=== PATIENT | male | born 1950 | race Two or more races ===

== ENCOUNTER 2023-04-12 21:29 | Emergency (ER) | payer MEDICARE, MEDICAID ==
[~2023-04-12] VITALS: Ht 160 cm; Wt 77.0 kg
[~2023-04-12 21:29] MED LIST: ATOV1TAB PO; CEFP200T15 PO; DEXTSYP31 PO; FOLI-119 PO; MAGN84TA4 PO; ONDA-155 PO; PANT1INJ3 PO; POM PO; PRE1T PO; URSO300C2 PO; [UNRECOGNIZED DRUG - CODE] PO
[2023-04-13 07:52] VITALS: BP 116/63; PULSE 80; RESP 18; TEMP 97.5; O2SAT 95
== END 2023-04-13 00:20 | disposition home or self-care (01) ==
LOC: ER 21:29
DX: S46.812A Strain of other muscles, fascia and tendons at shoulder and upper arm level, left arm, initial encounter (principal); S00.03XA Contusion of scalp, initial encounter; Z85.9 Personal history of malignant neoplasm, unspecified; W01.0XXA Fall on same level from slipping, tripping and stumbling without subsequent striking against object, initial encounter; Y93.89 Activity, other specified; Y92.89 Other specified places as the place of occurrence of the external cause; Y99.8 Other external cause status
CPT/HCPCS: 70450; 73030

== ENCOUNTER 2023-04-16 15:13 | Emergency (ER) | payer MEDICARE, MEDICAID ==
[~2023-04-16] VITALS: Ht 160 cm; Wt 75.1 kg
[2023-04-16] MEDS ORDERED: ACETAMINOPHEN 500 MG TAB PO ONE (16:00)
[2023-04-16 16:20] VITALS: PULSE 104; RESP 20; O2SAT 92
[2023-04-16 16:22] VITALS: TEMP 98.4
[2023-04-16 16:41] LABS: Basophils # (auto) 0 10 ^3/uL (0-0.2); Eosinophils # (auto) 0 10 ^3/uL (0-0.8); Lymphocytes # (auto) 0.4 10 ^3/uL (0.4-5.4); Nucleated Red Blood Cells % 0.1 %
[2023-04-16 16:47] LABS: Basophils % (auto) 0.3 % (0.0-2.0); Eosinophils % (auto) 0.3 % (0.0-7.0); Hematocrit 40.1 % (41.0-53.0); Lymphocytes % (auto) 5.2 % (10.0-50.0); Mean Corpuscular Hemoglobin 26.1 pg (28.0-32.0); Mean Corpuscular Hgb Conc. 32.3 g/dL (32.0-36.0); Monocytes # (auto) 0.3 10 ^3/uL (0-1.3); Monocytes % (auto) 4.7 % (0.0-12.0); Neutrophils # (auto) 6.3 10 ^3/uL (1.6-8.6); Neutrophils % (auto) 89.5 % (37.0-80.0); Red Blood Cells 4.96 10^6/uL (4.5-5.90)
[2023-04-16 17:06] LABS: Alkaline Phosphatase 88 U/L (46-116); Anion Gap 7 (5-15); Aspartate Aminotransferase 12 U/L (13-40); BUN/Creatinine Ratio 11.3 (10.0-20.0); Blood Urea Nitrogen 12 mg/dL (9-23); Calcium 9.1 mg/dL (8.7-10.4); Carbon Dioxide 25 mmol/L (20-30); Chloride 108 mmol/L (98-107); Glucose 122 mg/dL (74-106); Sodium 140 mmol/L (136-145)
[2023-04-16 17:07] LABS: Albumin 4.3 g/dL (3.2-4.8); Bilirubin, Total 0.9 mg/dL (0.2-1.0); Total Protein 6.6 g/dL (5.7-8.2)
[2023-04-16 17:37] LABS: Alanine Aminotransferase < 9 U/L (7-40)
[2023-04-16 17:40] LABS: COVID19 ANTIGEN SOFIA FIA NEGATIVE (NEGATIVE); Rapid Influenza A Negative (Negative); Rapid Influenza B Negative (Negative)
[2023-04-16 17:44] LABS: Urine Bacteria NONE SEEN /hpf (None Seen); Urine Blood Negative /uL (Negative); Urine Clarity HAZY (Clear); Urine Color Yellow (Yellow); Urine Mucus FEW (None Seen); Urine Protein, UAD 1+ (Negative); Urine Specific Gravity 1.026 (1.001-1.035); Urine Urobilinogen Normal (Negative); Urine WBC 2 /hpf (0 - 3)
[2023-04-16] MEDS ORDERED: AZITHROMYCIN 250 MG TAB PO ONE (18:30)
[2023-04-16] MEDS ORDERED: BENZ100C97 PO (18:38)
[2023-04-16] MEDS ORDERED: LORA10CA PO (18:38)
[2023-04-16] MEDS ORDERED: AZIT-81 PO (18:38)
[2023-04-16 19:00] VITALS: BP 103/61; PULSE 87; RESP 14; O2SAT 96
== END 2023-04-16 19:18 | disposition home or self-care (01) ==
LOC: ER 15:13
DX: J18.9 Pneumonia, unspecified organism (principal); Z20.822 Contact with and (suspected) exposure to COVID-19
CPT/HCPCS: 36415; 71045; 80053; 81001; 83880; 84484; 85025; 87426; 87804

== ENCOUNTER 2023-08-18 21:04 | Emergency (ER) | payer MEDICARE, MEDICAID ==
[~2023-08-18] VITALS: Ht 160 cm; Wt 77.4 kg
[~2023-08-18 21:04] MED LIST changes: +AZIT-185 PO; +BENZ100C97 PO; +LORA10CA PO
[2023-08-18 21:20] VITALS: BP 135/77; PULSE 112
[2023-08-18 22:23] LABS: COVID19 ANTIGEN SOFIA FIA NEGATIVE (NEGATIVE)
[2023-08-18 22:24] LABS: Rapid Influenza A Negative (Negative); Rapid Influenza B Negative (Negative)
[2023-08-19] MEDS ORDERED: cefTRIAXone 1GM/50ML D5W 50 ML IV ONE (02:00)
[2023-08-19] MEDS ORDERED: AZITHROMYCIN 500MG/ 250ML 250 ML IV ONE (02:00)
[2023-08-19 02:09] VITALS: RESP 18; O2SAT 96
[2023-08-19] MEDS: IPRATROPIUM BROM 0.5 MG/2.5ML INH SOL NEB ONE (02:09)
[2023-08-19] MEDS: ALBUTEROL SULF 2.5 MG/0.5ML(0.5%) NEB SOLN NEB ONE (02:09)
[2023-08-19] MEDS ORDERED: HYDROcodone-ACET 5/325MG TAB PO PRN (04:45)
[2023-08-19] MEDS ORDERED: IPRATROPIUM BROM 0.5 MG/2.5ML INH SOL NEB PRN (04:45)
[2023-08-19] MEDS ORDERED: ACETAMINOPHEN 325 MG TAB PO PRN (04:45)
[2023-08-19] MEDS ORDERED: ONDANSETRON HCL 4 MG/2 ML VIAL IV PRN (04:45)
[2023-08-19] MEDS ORDERED: MORPHINE SULFATE INJ 2 MG/ml SYRG IV PRN (04:45)
[2023-08-19] MEDS ORDERED: DOCUSATE SOD 100 MG CAP PO PRN (04:45)
[2023-08-19] MEDS ORDERED: NITROGLYCERIN 0.4 MG SL TAB SL PRN (04:45)
[2023-08-19] MEDS ORDERED: ALBUTEROL SULF 2.5 MG/0.5ML(0.5%) NEB SOLN NEB PRN (04:45)
[2023-08-19] MEDS ORDERED: SODIUM CHLOR 0.9% PF (SALINE LOCK) 10ML VIAL/SYR IV SCH (06:00)
[2023-08-19] MEDS ORDERED: MULTIPLE VITAMIN TAB PO SCH (10:00)
[2023-08-20] MEDS ORDERED: AZITHROMYCIN 500MG/ 250ML 250 ML IV SCH (02:00)
== END 2023-08-19 06:56 | disposition left against medical advice (07) ==
LOC: ER 21:04
DX: J18.9 Pneumonia, unspecified organism (principal); R09.02 Hypoxemia; Z20.822 Contact with and (suspected) exposure to COVID-19
CPT/HCPCS: 36415; 71045; 87426; 87804; 94640; 99284; J7644

== ENCOUNTER 2024-02-23 11:53 | Inpatient (IN) | payer MEDICARE, MEDICAID ==
[~2024-02-23] VITALS: Ht 160 cm; Wt 65.7 kg
--- NOTE | 2024-02-23 13:52 | ED.PDOC ---
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 Per spouse, patient endorses on having difficulty breathing and cough with yellow- phlegm production for the past 2-3x days, with additional onset of fever and 1x episode of diarrhea, yesterday, evening. Patient comments on recent PNA Dx with urgent care visit in [facility] in addition to eloping from [facility] ED in [place], [place], after being sent from urgent care, due to also being found with a low SpO2 then. Patient reports NyQuil use, last night, to no relief or improvement to symptoms in addition to reporting on testing negative for Covid19 during aforementioned ED visit. Patient endorses no recent injuries, sick contact, travel, spoiled food, or substance use/exposure. Denies having any chest pain, hemoptysis, chills, nausea, vomiting, or other associated symptoms or modifiers at this time. Chief Complaint: Shortness of Breath Time Seen by MD: 13:00 Primary Care Provider: [facility], [place] Reviewed Notes: Nurses Notes, Medications, Allergies Allergies: Coded Allergies: NO KNOWN ALLERGIES (Unverified , 04/08/13) Home Meds Active Scripts Benzonatate (Benzonatate) 100 Mg Cap, 1 CAP PO TID, #20 CAP Prov:AMADO FRASER PAC 04/16/23 Loratadine (Claritin) 10 Mg Cap, 10 MG PO DAILY for 10 Days, #10 CAP Prov:AMADO FRASER PAC 04/16/23 Azithromycin (ZITHROMAX TABLET) 250 Mg Tb, 250 MG PO DAILY for 4 Days, #4 TAB Patient to take first dose on 04/17/2023 Prov:AMADO FRASER PAC 04/16/23 Cefpodoxime Proxetil (Cefpodoxime Proxetil) 200 Mg Tab, 1 TAB PO BID, #12 TAB Prov:MARIZA WOODS MD 04/05/23 Reported Medications Ondansetron HCl (Ondansetron) 4 Mg Tab, 8 MG PO Q8HR PRN for NAUSEA / VOMITING, TAB 04/04/23 Magnesium Lactate (Mag-Tab Sr) 84 Mg Tab, 133 MG PO BID, TAB 04/04/23 Ursodiol (Ursodiol) 300 Mg Cap, 300 MG PO DAILY for 30 Days, MG 04/04/23 Atovaquone-Proguanil Hcl (ATOVAQUONE/PROGUANIL HCL) 1 Tab Tab, 10 ML PO BID, TAB 04/04/23 Dextromethorphan-Guaifenesin (Guaifenesin Dm) Dm Syp, 10 ML PO Q6HP PRN for FOR COUGH, SYP 04/04/23 Folic Acid (Folic Acid) 1 Mg Tab, 1 TAB PO DAILY for 30 Days, MG 04/04/23 Patients Own Medication (PATIENTS OWN MEDICATION) ., 1 TAB PO BID PTS OWN MED-OBTAIN FROM PT AND SEND TO RX DRUG: FREQ: RX# EXP: DATE DISP: TECH: RPH: 04/04/23 Posaconazole (Posaconazole) 40 Mg/Ml Hannah, 300 MG PO DAILY, ML 04/04/23 Pantoprazole Sodium (PANTOPRAZOLE SODIUM) 40 Mg Inj, 40 MG PO DAILY, INJ 04/04/23 Prednisone (PREDNISONE) 1 Mg Tb, 10 MG PO EOD, TAB 04/04/23 Information Source: Patient, Spouse Mode of Arrival: Ambulatory Severity: Moderate Timing: Days Duration: Since onset Prehospital treatment: None Past Medical History PAST MEDICAL HISTORY: Cancer (leukemia, in remission ) Past Medical History (Other): obesity Surgical History: Appendectomy, Cholecystectomy, Hernia Repair Surgical History (Other): liver Sx, cataract Sx Family History Family History: No family hx of DM, No family hx of Heart elaine, No family hx of HTN, No family hx ofKidney elaine, No family hx of Liver elaine, No family hx of Lung elaine, No family hx of Stroke, Family hx of Cancer (maternal side ) Social History Smoker: Non-Smoker Alcohol: Denies ETOH Use Drugs: Denies Drug Use Lives In: Home Constitutional: reports: fever; denies: chills, diaphoresis, fatigue, malaise, sweats, weakness, others EENTM: denies: blurred vision, double vision, ear bleeding, ear discharge, ear drainage, ear pain, ear ringing, eye pain, eye redness, hearing loss, mouth pain, mouth swelling, nasal discharge, nose bleeding, nose congestion, nose pain, photophobia, tearing, throat pain, throat swelling, voice changes, others Respiratory: reports: cough, shortness of breath; denies: hemoptysis, orthopnea, SOB at rest, SOB with excertion, stridor, wheezing, others Cardiovascular: denies: chest pain, dizzy spells, diaphoresis, Dyspnea on exertion, edema, irregular heart beat, left arm pain, lightheadedness, palpitations, PND, syncope, others Gastrointestinal: reports: diarrhea; denies: abdomen distended, abdominal pain, blood streaked bowels, constipated, dysphagia, difficulty swallowing, hematemesis, melena, nausea, poor appetite, poor fluid intake, rectal bleeding, rectal pain, vomiting, others Genitourinary: denies: burning, dysuria, flank pain, frequency, hematuria, incontinence, penile discharge, penile sore, pain, testicle pain, testicle swelling, urgency, others Neurological: denies: dizziness, fainting, headache, left sided numbness, left sided weakness, numbness, paresthesia, pre-existing deficit, right sided numbness, right sided weakness, seizure, speech problems, tingling, tremors, weakness, others Musculoskeletal: denies: back pain, gout, joint pain, joint swelling, muscle pain, muscle stiffness, neck pain, others Integumetry: denies: bruises, change in color, change in hair/nails, dryness, laceration, lesions, lumps, rash, wounds, others Allergic/Immunocompromised: denies: Difficulty Healing, Frequent Infections, Hives, Itching, others Hematologic/Lymphatic: denies: anemia, blood clots, easy bleeding, easy bruising, swollen glands, others Endocrine: denies: excessive hunger, excessive sweating, excessive thirst, excessive urination, flushing, intolerance to cold, intolerance to heat, unexplained weight gain, unexplained weight loss, others Psychiatric: denies: anxiety, bipolar disorder, depression, hopeless, panic disorder, schizophrenia, sleepless, suicidal, others All Other Systems: Reviewed and Negative Physical Exam General Appearance: Moderate Distress, Obese HEENT: Normal ENT Inspection, Pharynx Normal, TMs Normal Neck: Full Range of Motion, Non-Tender, Normal, Normal Inspection Respiratory: Chest Non-Tender, Lungs Clear, No Accessory Muscle Use, No Respiratory Distress, Normal Breath Sounds Cardiovascular: No Edema, No JVD, No Murmur, No Gallop, Tachycardia Breast Exam: Deferred Gastrointestinal: No Organomegaly, Non Tender, No Pulsatile Mass, Normal Bowel Sounds, Soft Genitalia: Deferred Pelvic: Deferred Rectal: Deferred Extremities: No calf tenderness, Normal capillary refill, Normal inspection, Normal range of motion, Non-tender, No pedal edema Musculoskeletal : Apperance: Normal 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 Was a procedure done?: No Differential Dx Considerations may include: PNA, bronchitis, Covid19, URI, viral syndrome, PE, MO X-Ray, Labs, Meds, VS Vital Signs Date Time Temp Pulse Resp B/P (MAP) Pulse Ox O2 Delivery O2 Flow Rate FiO2 02/23/24 12:35 97.8 94 18 123/70 (87) 95 Lab Test 02/23/24 13:40 Range/Units White Blood Count 8.4 4.4-10.8 10^3/uL Red Blood Count 5.57 4.5-5.90 10^6/uL Hemoglobin 14.5 13.5-17.5 g/dL Hematocrit 44.0 41.0-53.0 % Mean Corpuscular Volume 78.9 L 80.0-100.0 fL Mean Corpuscular Hemoglobin 26.0 L 28.0-32.0 pg Mean Corpuscular Hemoglobin Concent 32.9 32.0-36.0 g/dL Red Cell Distribution Width 15.2 H 11.8-14.3 % Platelet Count 153 140-450 10^3/uL Mean Platelet Volume 6.7 L 6.9-10.8 fL Neutrophils (%) (Auto) 70.8 37.0-80.0 % Lymphocytes (%) (Auto) 20.5 10.0-50.0 % Monocytes (%) (Auto) 7.9 0.0-12.0 % Eosinophils (%) (Auto) 0.4 0.0-7.0 % Basophils (%) (Auto) 0.4 0.0-2.0 % Neutrophils # (Auto) 5.9 1.6-8.6 10 ^3/uL Lymphocytes # (Auto) 1.7 0.4-5.4 10 ^3/uL Monocytes # (Auto) 0.7 0-1.3 10 ^3/uL Eosinophils # (Auto) 0 0-0.8 10 ^3/uL Basophils # (Auto) 0 0-0.2 10 ^3/uL Nucleated Red Blood Cells 0.0 % Sodium Level 139 136-145 mmol/L Potassium Level 3.9 3.5-5.1 mmol/L Chloride Level 103 98-107 mmol/L Carbon Dioxide Level 29 20-31 mmol/L Anion Gap 7 5-15 Blood Urea Nitrogen 22 9-23 mg/dL Creatinine 1.18 0.700-1.30 mg/dL Glomerular Filtration Rate Calc 64 >90 mL/min BUN/Creatinine Ratio 18.6 10.0-20.0 Serum Glucose 98 74-106 mg/dL Lactic Acid Level 1.5 0.4-2.0 mmol/L Calcium Level 9.8 8.7-10.4 mg/dL B-Type Natriuretic Peptide 23.42 0-100 pg/mL The patient's CBC and chemistry panel are within normal limits The BNP is within normal limits The chest x-ray shows: IMPRESSION: 1. Chronic appearing bilateral interstitial opacities, appear similar to the prior exams. Findings may be due to chronic interstitial lung disease and/or scarring. 2. Suspected small right pleural effusion with overlying atelectasis and consolidation. At this time, the patient was being admitted to the hospitalist Images Reviewed?: Images reviewed and evaluated by me Time of 1ST Reevaluation: 13:30 Reevaluation 1ST: Unchanged Patient Education/Counseling: Diagnosis, Treatment, Prognosis Family Education/Counseling: Diagnosis, Treatment, Prognosis Departure 1 Departure Time of Disposition: 19:00 Impression: Primary Impression: Acute respiratory failure Qualified Codes: J96.01 - Acute respiratory failure with hypoxia Additional Impression: Pleural effusion, right Disposition: 09 ADMITTED INPATIENT Admit to: Med Surg Condition: Fair Critical Care Note Critical Care Time?: Yes (35 min-critical care time only) Stability Stability form required: Yes Unstable for transfer: Telemetry monitoring (Telemetry monitoring required), ED Physician Assesment (Clinical assesment) Heart Score Heart Score: Heart Score Response (Comments) Value History Moderate Suspicious 1 EKG Normal 0 Age >65 2 Risk Factors 1 or 2 risk factors 1 Troponin Normal limit 0 Total 4 I personally scribed for CARMENZA EAST MD ([email or web address]) on 02/23/24 at 13:52. Electronically submitted by Jose M Contreras ([email or web address]). CARMENZA EAST MD Feb 23, 2024 13:52
[2024-02-23 14:06] LABS: Basophils # (auto) 0 10 ^3/uL (0-0.2); Basophils % (auto) 0.4 % (0.0-2.0); Eosinophils # (auto) 0 10 ^3/uL (0-0.8); Eosinophils % (auto) 0.4 % (0.0-7.0); Hemoglobin 14.5 g/dL (13.5-17.5); Lymphocytes # (auto) 1.7 10 ^3/uL (0.4-5.4); Lymphocytes % (auto) 20.5 % (10.0-50.0); Mean Corpuscular Hgb Conc. 32.9 g/dL (32.0-36.0); Mean Corpuscular Volume 78.9 fL (80.0-100.0); Monocytes # (auto) 0.7 10 ^3/uL (0-1.3); Monocytes % (auto) 7.9 % (0.0-12.0); Neutrophils # (auto) 5.9 10 ^3/uL (1.6-8.6); Neutrophils % (auto) 70.8 % (37.0-80.0); Platelet Count (auto) 153 10^3/uL (140-450); Red Blood Cells 5.57 10^6/uL (4.5-5.90); Red Cell Distribution Width 15.2 % (11.8-14.3); White Blood Cell 8.4 10^3/uL (4.4-10.8)
--- NOTE | 2024-02-23 14:07 | DVH ---
CLINICAL INFORMATION: 73 years old, Male; shortness of breath. TECHNIQUE: Frontal and lateral chest radiographs were obtained. COMPARISON: None FINDINGS: Lungs: There is moderate elevation of the right hemidiaphragm, similar to the prior exams. Chronic ap pearing interstitial opacities, similar to the prior exam, likely sequela of chronic interstitial andrey g disease. Blunting of the right costophrenic angle suggesting small right pleural effusion with over lying atelectasis and/or consolidation. Cardiac: Heart size is within normal limits. Pulmonary vasculature: Unremarkable Mediastinum/lashell: Within normal limits. Bones: No evidence of acute osseous abnormality. Other: No other significant finding. IMPRESSION: 1. Chronic appearing bilateral interstitial opacities, appear similar to the prior exams. Findings ma y be due to chronic interstitial lung disease and/or scarring. 2. Suspected small right pleural effusion with overlying atelectasis and consolidation.
[2024-02-23 14:17] LABS: Chloride 103 mmol/L (98-107); Potassium 3.9 mmol/L (3.5-5.1); Sodium 139 mmol/L (136-145)
[2024-02-23 14:18] LABS: Anion Gap 7 (5-15); Calcium 9.8 mg/dL (8.7-10.4); Carbon Dioxide 29 mmol/L (20-31)
[2024-02-23 14:23] LABS: BUN/Creatinine Ratio 18.6 (10.0-20.0); Blood Urea Nitrogen 22 mg/dL (9-23); Glucose 98 mg/dL (74-106)
--- NOTE | 2024-02-23 14:41 | ECG ---
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
[2024-02-23] MEDS ORDERED: ACETAMINOPHEN 325 MG TAB PO PRN (14:45)
[2024-02-23] MEDS ORDERED: ALBUTEROL SULF 2.5 MG/0.5ML(0.5%) NEB SOLN NEB PRN (14:45)
[2024-02-23] MEDS ORDERED: ONDANSETRON HCL 4 MG/2 ML VIAL IV PRN (14:45)
[2024-02-23] MEDS ORDERED: MAALOX PLUS or MAALOX 30 ML PO PRN (14:45)
[2024-02-23] MEDS ORDERED: DOCUSATE SOD 100 MG CAP PO PRN (14:45)
[2024-02-23] MEDS ORDERED: HYDROcodone-ACET 5/325MG TAB PO PRN (14:45)
[2024-02-23] MEDS ORDERED: IPRATROPIUM BROM 0.5 MG/2.5ML INH SOL NEB PRN (14:45)
[2024-02-23] MEDS ORDERED: MORPHINE SULFATE INJ 2 MG/ml SYRG IV PRN (14:45)
[2024-02-23 17:45] VITALS: PULSE 68; RESP 22
[2024-02-23] MEDS: cefTRIAXone 1GM/50ML D5W 50 ML IV SCH (17:52)
[2024-02-23] MEDS: methylPREDNISolone SOD SUCC 40 MG/ML VL IV SCH (17:53)
[2024-02-23] MEDS: SODIUM CHLORIDE 0.9% 1,000 ML IV SCH (17:59)
[2024-02-23] MEDS: AZITHROMYCIN 250 MG TAB PO SCH (17:59)
[2024-02-23 20:02] VITALS: BP 101/64; PULSE 71; RESP 18; TEMP 97.7; O2SAT 97
[2024-02-23 22:55] VITALS: RESP 18
[2024-02-23 23:00] VITALS: BP 117/67; PULSE 71; RESP 20; TEMP 98; O2SAT 98
[2024-02-24] VITALS (15 sets, daily range): BP systolic 109–141; BP diastolic 65–183; PULSE 18–80; RESP 16–24; TEMP 97.3–99.2; O2SAT 93–100
[2024-02-24 06:33] LABS: Anion Gap 7 (5-15); Calcium 9.8 mg/dL (8.7-10.4); Carbon Dioxide 28 mmol/L (20-31); Chloride 105 mmol/L (98-107); Potassium 4.7 mmol/L (3.5-5.1); Sodium 140 mmol/L (136-145)
[2024-02-24 06:39] LABS: BUN/Creatinine Ratio 16.3 (10.0-20.0); Blood Urea Nitrogen 16 mg/dL (9-23)
[2024-02-24 06:43] LABS: Basophils # (auto) 0 10 ^3/uL (0-0.2); Basophils % (auto) 0.1 % (0.0-2.0); Eosinophils # (auto) 0 10 ^3/uL (0-0.8); Hematocrit 38.7 % (41.0-53.0); Hemoglobin 12.9 g/dL (13.5-17.5); Lymphocytes # (auto) 0.9 10 ^3/uL (0.4-5.4); Lymphocytes % (auto) 20.4 % (10.0-50.0); Mean Corpuscular Hemoglobin 26.2 pg (28.0-32.0); Mean Corpuscular Hgb Conc. 33.4 g/dL (32.0-36.0); Mean Corpuscular Volume 78.4 fL (80.0-100.0); Monocytes # (auto) 0.1 10 ^3/uL (0-1.3); Monocytes % (auto) 1.8 % (0.0-12.0); Neutrophils # (auto) 3.4 10 ^3/uL (1.6-8.6); Neutrophils % (auto) 77.7 % (37.0-80.0); Nucleated Red Blood Cells % 0.1 %; Platelet Count (auto) 126 10^3/uL (140-450); Red Blood Cells 4.93 10^6/uL (4.5-5.90); Red Cell Distribution Width 15.4 % (11.8-14.3); White Blood Cell 4.4 10^3/uL (4.4-10.8)
[2024-02-24 07:03] LABS: Glucose 151 mg/dL (74-106)
[2024-02-24 07:33] LABS: COVID19 ANTIGEN SOFIA FIA NEGATIVE (NEGATIVE); Rapid Influenza A Negative (Negative); Rapid Influenza B Negative (Negative)
--- NOTE | 2024-02-24 10:28 | DVHPNRES ---
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 According to patient, two days prior to presentation to the ED, he started having cough that became persistent. He noticed lower grade fever. Patient denied any sick contacts, nausea, vomiting or headache, recent travel history or trauma to his chest. In the ED, his vitals were Temp: 97.5, pulse, 94, RR: 18., 22, 22 and currently on 2L of oxygen. Chest x-ray revealed chronic appearing bilateral interstitial opacities, appear similar to the prior exams and a suspected small right pleural effusion with overlying atelectasis and consolidation. Of note, patient does not use oxygen at home. Review of system: Constitutional: fever, no chills no feeling of malaise HEENT: Denies headache, ear pain, ear discharges, conjunctivitis, nasal discharge throat pain Cardiovascular: Denies chest pain, palpitation, orthopnea, PND, or pedal edema Respiratory: shortness of breath, cough, sputum production; hemoptysis, GI: Denies abdominal pain, nausea, vomiting, diarrhea, hematemesis, hematochezia, : Denies frequency, urgency, hematuria, Endocrine: Denies unintentional weight gain or weight loss, feeling of hot flashes, Paul: easy bruising, bleeding disorders, epistaxis Musculoskeletal: Denies joint pains, muscle aches Psych: No evidence of depression, irene, suicidal ideation pmhx: per HPI on pshx: None Family hx: None contributory 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, Review of Systems: RESPIRATORY:Abnormal (shortness of breath) Objective vital signs Vital Sign Date Time Temp Pulse Resp B/P (MAP) Pulse Ox O2 Delivery O2 Flow Rate FiO2 02/24/24 08:14 97.8 74 17 115/66 (82) 96 97.8 02/24/24 01:10 Nasal Cannula 2.0 02/24/24 01:10 28 Total Intake and Output 02/23/24 02/23/24 02/24/24 15:00 23:00 07:00 Intake Total 0 ml Output Total 400 ml Balance -400 ml medications Current Medications Medications Dose Ordered Sig/Maria Guadalupe Route Start Time Stop Time Status Last Admin Dose Admin Albuterol 2.5 mg Q4HPRN PRN NEB 02/23/24 14:45 Ipratropium Campbell 0.5 mg Q4HPRN PRN NEB 02/23/24 14:45 Ceftriaxone Sodium 50 ml @ 100 mls/hr DAILY IV 02/23/24 14:45 02/23/24 17:52 100 MLS/HR Azithromycin 500 mg DAILY PO 02/23/24 14:45 02/23/24 17:59 500 MG Methylprednisolone Sodium Succinate 40 mg BID IV 02/23/24 14:45 02/23/24 23:31 40 MG Al Hydrox/Mg Hydrox/Simethicone 30 ml Q6HP PRN PO 02/23/24 14:45 Docusate Sodium 100 mg BIDPRN PRN PO 02/23/24 14:45 Acetaminophen 650 mg Q6HP PRN PO 02/23/24 14:45 Acetaminophen/ Hydrocodone Bitart 1 tab Q4HP PRN PO 02/23/24 14:45 Ondansetron HCl 4 mg Q4HP PRN IV 02/23/24 14:45 Morphine Sulfate 2 mg Q4HPRN PRN IV 02/23/24 14:45 Examination General examination- Not in acute distress, but on 2L of oxygen, talking in full sentences HEENT: PEERLA, no acute nasal discharge Chest: S1-S2 audible, rate and rhythm regular, no murmur Lung: wheezing, inspiratory crackles Abdomen: Nondistend, BS+, nontenderness, no organomegaly Musculoskeletal: no acute joint swelling or tenderness Lower extremity: no leg edema Neurological: cranial nerves intact, no acute dysarthria or dysphagia Psychiatry-- Normal mood and affect Skin- no acute rash or purpura Examination: LUNGS:Abnormal laboratory and microbiology Laboratory Tests 02/24/24 05:43 Test 02/24/24 05:43 Range/Units Serum Glucose 151 H 74-106 mg/dL Problem List/Assessment/Plan Problem List/Assessment/Plan Pneumonia gram negative, gram positive -->sputum culture sent -->Antibiotics (Cefepime and doxycycline) --> Tele Acute hypoxic respiratory failure --> On 2L of oxygen --> Breathing treatment ( Albuterol 2.5mg and Ipratropium .5mg q6hr prn) Pleural effusion --> monitor for improvement on physical examination --> 2L oxygen Atelectasis --> monitor for improvement --> 2L oxygen 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 Langley Plan discussed with: Patient, Spouse, Daughter My Orders My Orders Orders - LEXIE DAVIDSON Procedure Category Date Status Time Respiratory Culture MARCELA 02/24/24 Uncollected W/ Gs 09:44 Mrsa Screen MARCELA 02/24/24 Uncollected 09:44 Urine Bacterial MARCELA 02/24/24 Uncollected Culture 09:44 Urinalysis LAB 02/24/24 Logged 09:44 Date of Service: Feb 24, 2024 Billing Provider: AFSHAN OSORIO MD Common Visit Codes: [id number] INP/OBS CARE(HIGH) LEXIE DAVIDSON Feb 24, 2024 10:28 AFSHAN OSORIO MD Feb 27, 2024 23:09
[2024-02-24 10:59] LABS: Hepatitis B Surface Antigen Negative (Negative); Hepatitis C Antibody Negative (Negative)
[2024-02-24] MEDS ORDERED: ALBUTEROL SULF 2.5 MG/0.5ML(0.5%) NEB SOLN NEB SCH (11:15)
[2024-02-24] MEDS ORDERED: IPRATROPIUM BROM 0.5 MG/2.5ML INH SOL NEB SCH (11:15)
[2024-02-24 13:03] LABS: Urine Bacteria None Seen /hpf (None Seen)
[2024-02-24 13:17] LABS: Urine Blood Negative /uL (Negative); Urine Clarity Clear (Clear); Urine Color Yellow (Yellow); Urine Mucus FEW (None Seen); Urine Protein, UAD 1+ (Negative); Urine Specific Gravity 1.023 (1.001-1.035); Urine Urobilinogen Normal (Negative); Urine WBC 2 /hpf (0 - 3)
--- NOTE | 2024-02-24 14:00 | MEDREC ---
[facility] ASP Intervention Section I [facility] ASP Intervention: Dose optimization(PK/PD) (PATIENT PRESENTED TO THE ED WITH SHORTNESS OF BREATH. HE HAS HISTORY OF LEUKEMIA. X-RAY ON 02/22 SHOWED BILATERAL INTERSTITIAL OPACITIES. PLEASE CONSIDER INCREASING DOSE OF CEFEPIME TO 2 G IV Q8H FOR EMPIRIC TREATMENT OF PNEUMONIA), Review courses of therapy RADHA LYNN Feb 24, 2024 14:00
[2024-02-24] MEDS ORDERED: guaiFENesin-DM 100/10mg/5ml SYR PO PRN (17:15)
[2024-02-24] MEDS: CEFEPIME 1GM/ 50ML 50 ML IV SCH (17:33)
[2024-02-24] MEDS: DOXYCYCLINE 100 MG TAB/CAP PO ONE (17:33)
[2024-02-24] MEDS: IPRATROPIUM BROM 0.5 MG/2.5ML INH SOL NEB SCH (17:56)
[2024-02-24] MEDS: ALBUTEROL SULF 2.5 MG/0.5ML(0.5%) NEB SOLN NEB SCH (17:57)
[2024-02-24] MEDS: DOXYCYCLINE 100 MG TAB/CAP PO SCH (21:14)
[2024-02-25] VITALS (15 sets, daily range): BP systolic 101–137; BP diastolic 65–93; PULSE 69–99; RESP 17–20; TEMP 97.3–98.6; O2SAT 92–99
[2024-02-25] MEDS ORDERED: ALBUAER3 IN (16:12)
[2024-02-25] MEDS ORDERED: DOX100T PO (16:12)
[2024-02-25] MEDS ORDERED: PRED20TA2 PO (16:12)
--- NOTE | 2024-02-25 16:52 | DVHDSRES ---
Discharge Summary Date of Admission Resident Creating Document: LEXIE DAVIDSON RESIDENT Feb 23, 2024 at 14:42 Date of Discharge: Feb 25, 2024 Admitting Diagnosis Shortness of breath Leukemia Labs/Diagnostic Data: Laboratory Results Test 02/24/24 12:56 02/24/24 05:50 02/24/24 05:43 02/23/24 13:40 Urine Color Yellow (Yellow) Urine Clarity Clear (Clear) Urine pH 5.0 (5.0-9.0) Urine Specific [place] 1.023 (1.001-1.035) Urine Protein 1+ (Negative) Urine Ketones Negative (Negative) Urine Blood Negative /uL (Negative) Urine Nitrite Negative (Negative) Urine Bilirubin Negative (Negative) Urine Urobilinogen Normal mg/dL (Negative) Urine Leukocyte Esterase Negative /uL (Negative) Urine RBC 3 /hpf (0 - 3) Urine WBC 2 /hpf (0 - 3) Urine Squamous Epithelial Cells Few /hpf (<5) Urine Bacteria None seen /hpf (None Seen) Urine Mucus Few (None Seen) Urine Glucose Normal mg/dL (Normal) Influenza Type A Antigen Negative (Negative) Influenza Type B Antigen Negative (Negative) SARS-CoV-2 Antigen (Rapid) Negative (NEGATIVE) White Blood Count 4.4 10^3/uL (4.4-10.8) Red Blood Count 4.93 10^6/uL (4.5-5.90) Hemoglobin 12.9 g/dL (13.5-17.5) Hematocrit 38.7 % (41.0-53.0) Mean Corpuscular Volume 78.4 fL (80.0-100.0) Mean Corpuscular Hemoglobin 26.2 pg (28.0-32.0) Mean Corpuscular Hemoglobin Concent 33.4 g/dL (32.0-36.0) Red Cell Distribution Width 15.4 % (11.8-14.3) Platelet Count 126 10^3/uL (140-450) Mean Platelet Volume 6.8 fL (6.9-10.8) Neutrophils (%) (Auto) 77.7 % (37.0-80.0) Lymphocytes (%) (Auto) 20.4 % (10.0-50.0) Monocytes (%) (Auto) 1.8 % (0.0-12.0) Eosinophils (%) (Auto) 0.0 % (0.0-7.0) Basophils (%) (Auto) 0.1 % (0.0-2.0) Neutrophils # (Auto) 3.4 10 ^3/uL (1.6-8.6) Lymphocytes # (Auto) 0.9 10 ^3/uL (0.4-5.4) Monocytes # (Auto) 0.1 10 ^3/uL (0-1.3) Eosinophils # (Auto) 0 10 ^3/uL (0-0.8) Basophils # (Auto) 0 10 ^3/uL (0-0.2) Nucleated Red Blood Cells 0.1 % Sodium Level 140 mmol/L (136-145) Potassium Level 4.7 mmol/L (3.5-5.1) Chloride Level 105 mmol/L (98-107) Carbon Dioxide Level 28 mmol/L (20-31) Anion Gap 7 (5-15) Blood Urea Nitrogen 16 mg/dL (9-23) Creatinine 0.98 mg/dL (0.700-1.30) Glomerular Filtration Rate Calc 80 mL/min (>90) BUN/Creatinine Ratio 16.3 (10.0-20.0) Serum Glucose 151 mg/dL (74-106) Calcium Level 9.8 mg/dL (8.7-10.4) Hepatitis B Surface Antigen Negative (Negative) Hepatitis C Antibody Negative (Negative) Lactic Acid Level 1.5 mmol/L (0.4-2.0) B-Type Natriuretic Peptide 23.42 pg/mL (0-100) Other Laboratory Tests 02/24/24 05:43 Brief Hx & Hospital Course: Mr. 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 Vitals in the ED was stable other than the respiratory rate cycle ( RR: 18., 22, 22) and patient was started on 2L of oxygen. Her blood work also did not reveal any elevated WBC however her chest x-ray did show some consolidation concerning for pneumonia. Therefore, the patient was initially started on vancomycin and Zosyn. Given the fibrosis noted on chest x- ray, we switched the antibiotics to cefepime and vancomycin, methylprednisole, and breathing treatment( Ipratropium and albuterol). Patient did well on it. On examination today, patient had very minimal wheeze and was did well off the oxygen. Patient was monitored closely off oxygen. His spo2 level off oxygen read 92-99%. Patient remained stable without and evidence of respiratory distress. Examination General examination- Not in acute distress, off oxygen HEENT: PEERLA, no acute nasal discharge Chest: S1-S2 audible, rate and rhythm regular, no murmur Lung: Improved wheezing. off Oxygen Abdomen: Nondistend, BS+, nontenderness, no organomegaly Musculoskeletal: no acute joint swelling or tenderness Extremity: no leg edema Neurological: cranial nerves intact, no acute dysarthria or dysphagia Psychiatry-- Normal mood and affect Skin- no acute rash or purpura Diagnoses Pneumonia gram negative, gram positive Acute hypoxic respiratory failure Pleural effusion Atelectasis Intestitial lung disease (on chest X-ray) Patient is doing better. Will discharge him home today on --> Doxycycline for 5 days --> albuterol as needed --> Patient advised to report to the discharge clinic in 7 days for post discharge evaluation --> If patient felt any worsening, he is advised to report back to the ED FIONA Discharge plans discussed and explain to the patient for more than 30 minutes. Discharge planing and post discharge plans discussed with Dr. Langley Operations or Procedures PATIENT: SALLIE GROVES ACCT: [id number] UNIT: [id number] : 1950 LOC: ER ROOM / BED: / AGE / SEX: 73 / M ADM STATUS: REG ER SERVICE 1323 ORDERING PHYSICIAN: CARMENZA EAST MD PROCEDURE(s): CXR2 - CHEST TWO VIEWS ROUTINE REASON: sob ORDER NUMBER(s): [id number], ACCESSION NUMBER(s): [id number] CLINICAL INFORMATION: 73 years old, Male; shortness of breath. TECHNIQUE: Frontal and lateral chest radiographs were obtained. COMPARISON: None FINDINGS: Lungs: There is moderate elevation of the right hemidiaphragm, similar to the prior exams. Chronic appearing interstitial opacities, similar to the prior exam, likely sequela of chronic interstitial lung disease. Blunting of the right costophrenic angle suggesting small right pleural effusion with overlying atelectasis and/or consolidation. Cardiac: Heart size is within normal limits. Pulmonary vasculature: Unremarkable Mediastinum/lashell: Within normal limits. Bones: No evidence of acute osseous abnormality. Other: No other significant finding. IMPRESSION: 1. Chronic appearing bilateral interstitial opacities, appear similar to the prior exams. Findings may be due to chronic interstitial lung disease and/or scarring. 2. Suspected small right pleural effusion with overlying atelectasis and consolidation. ATED BY: KHADAR ROLON DO DICTATED DATE/TIME: 02/23/24 1404 Condition at Discharge: Good Final Diagnosis/Problems List Pneumonia gram negative, gram positive Acute hypoxic respiratory failure Pleural effusion Atelectasis Intestitial lung disease (on chest X-ray) Leukemia in remission Discharge Disposition: Home Discharge Instruct/Medications Follow Up/Referral: 7 days follow up Discharge Statement: "Patient was advised to return to the ER or call 911 if any headaches, dizziness, shortness of breath, chest pain, abdominal pain, bleeding, fevers, or worsening of medical condition. Patient was counseled about treatment plan, medications, possible side effects, patientverbalized understanding. All questions were answered to the best of my ability. This discharge took greater then 30 minutes in planning, reviewing documentation, counseling the patient, and discussing with other team members." ASSESSMENT ASSESSMENT Assessment Date of Service: Feb 25, 2024 Billing Provider: AFSHAN OSORIO MD Common Visit Codes: 94137-PJY/OBS DISCH DAY >30min LEXIE DAVIDSON Feb 25, 2024 16:52 AFSHAN OSORIO MD Feb 28, 2024 00:06
--- NOTE | 2024-02-26 22:02 | DVHHP2 ---
History of Present Illness Reason for Visit: Shortness of breaths History of Present Illness Note is late entry 73-year-old male with a past medical history of leukemia came in for evaluation of having a productive cough and sputum patient initially on evaluation in the ED had elevated white count chest x-ray was showing signs of consolidation infiltrates concerning for pneumonia patient was started on antibiotics in the ED and recommended to be admitted for further evaluation management and treatment Heme/Onc: Cancer Review of Systems Constitutional: Yes: Fever, Weakness; No: Chills, Sweats, Malaise, Other Eyes: No: Pain, Vision change, Conjunctivae inflammation, Eyelid inflammation, Other, Redness ENT: No: Ear pain, Ear discharge, Nose pain, Nose discharge, Nose congestion, Mouth pain, Mouth swelling, Throat pain, Throat swelling, Other Respiratory: Cough, Shortness of breath; No: Dry, SOB with excertion, Wheezing, Hemoptysis, Pleuritic Pain, Sputum, Wheezing, Other Cardiovascular: No: Chest Pain, Palpitations, Orthopnea, Paroxysmal Noc. Dyspnea, Edema, Lt Headedness, Other Gastrointestinal: No: Nausea, Vomiting, Abdominal Pain, Diarrhea, Constipation, Melena, Hematochezia, Other Genitourinary: No Dysuria, No Frequency, No Incontinence, No Hematuria, No Retention, No Other Musculoskeletal: No: other, neck pain, shoulder pain, arm pain, back pain, hand pain, leg pain, foot pain Skin: No: Rash, Lesions, Jaundice, Bruising, Other Neurological: No: Weakness, Numbness, Incoordination, Change in speech, Confusion, Seizures, Other Allergies: Coded Allergies: NO KNOWN ALLERGIES (Unverified , 04/08/13) Exam Vital Signs Vital Signs Date Time Temp Pulse Resp B/P (MAP) Pulse Ox O2 Delivery O2 Flow Rate FiO2 02/25/24 19:40 97.3 98 18 93 02/25/24 19:12 Room Air 0.0 02/25/24 19:12 21 02/25/24 17:26 137/93 (108) General Appearance: Oriented X3 HEENT: Atraumatic, PERRLA Respiratory: Clear to auscultation, Normal air movement Cardiovascular: Regular rate, Normal S1, Normal S2 Abdominal: Normal bowel sounds, Soft Extremities: No clubbing, No cyanosis, No edema Skin: No rashes, No breakdown Neuro: Normal gait, Normal speech Psych/Mental Status: Mood NL Labs/Xrays Labs Test 02/24/24 12:56 02/24/24 05:50 02/24/24 05:43 02/23/24 13:40 Range/Units Urine Color Yellow Yellow Urine Clarity Clear Clear Urine pH 5.0 5.0-9.0 Urine Specific [place] 1.023 1.001-1.035 Urine Protein 1+ H Negative Urine Ketones Negative Negative Urine Blood Negative Negative /uL Urine Nitrite Negative Negative Urine Bilirubin Negative Negative Urine Urobilinogen Normal Negative mg/dL Urine Leukocyte Esterase Negative Negative /uL Urine RBC 3 0 - 3 /hpf Urine WBC 2 0 - 3 /hpf Urine Squamous Epithelial Cells Few <5 /hpf Urine Bacteria None seen None Seen /hpf Urine Mucus Few None Seen Urine Glucose Normal Normal mg/dL Influenza Type A Antigen Negative Negative Influenza Type B Antigen Negative Negative SARS-CoV-2 Antigen (Rapid) Negative NEGATIVE White Blood Count 4.4 # 4.4-10.8 10^3/uL Red Blood Count 4.93 4.5-5.90 10^6/uL Hemoglobin 12.9 L 13.5-17.5 g/dL Hematocrit 38.7 #L 41.0-53.0 % Mean Corpuscular Volume 78.4 L 80.0-100.0 fL Mean Corpuscular Hemoglobin 26.2 L 28.0-32.0 pg Mean Corpuscular Hemoglobin Concent 33.4 32.0-36.0 g/dL Red Cell Distribution Width 15.4 H 11.8-14.3 % Platelet Count 126 L 140-450 10^3/uL Mean Platelet Volume 6.8 L 6.9-10.8 fL Neutrophils (%) (Auto) 77.7 37.0-80.0 % Lymphocytes (%) (Auto) 20.4 10.0-50.0 % Monocytes (%) (Auto) 1.8 0.0-12.0 % Eosinophils (%) (Auto) 0.0 0.0-7.0 % Basophils (%) (Auto) 0.1 0.0-2.0 % Neutrophils # (Auto) 3.4 1.6-8.6 10 ^3/uL Lymphocytes # (Auto) 0.9 0.4-5.4 10 ^3/uL Monocytes # (Auto) 0.1 0-1.3 10 ^3/uL Eosinophils # (Auto) 0 0-0.8 10 ^3/uL Basophils # (Auto) 0 0-0.2 10 ^3/uL Nucleated Red Blood Cells 0.1 % Sodium Level 140 136-145 mmol/L Potassium Level 4.7 3.5-5.1 mmol/L Chloride Level 105 98-107 mmol/L Carbon Dioxide Level 28 20-31 mmol/L Anion Gap 7 5-15 Blood Urea Nitrogen 16 9-23 mg/dL Creatinine 0.98 0.700-1.30 mg/dL Glomerular Filtration Rate Calc 80 >90 mL/min BUN/Creatinine Ratio 16.3 10.0-20.0 Serum Glucose 151 H 74-106 mg/dL Calcium Level 9.8 8.7-10.4 mg/dL Hepatitis B Surface Antigen Negative Negative Hepatitis C Antibody Negative Negative Lactic Acid Level 1.5 0.4-2.0 mmol/L B-Type Natriuretic Peptide 23.42 0-100 pg/mL Microbiology Date/Time Source Procedure Growth Status 02/24/24 18:56 Nose MRSA Screen - Final Complete 02/24/24 12:56 Voided Urine Urine Culture - Preliminary Resulted 02/24/24 12:56 Sputum Gram Stain - Final Resulted 02/24/24 12:56 Sputum Respiratory Culture - Preliminary Resulted 02/23/24 13:51 Blood Blood Culture - Preliminary NO GROWTH AFTER 72 HOURS OF INCUBATION. Resulted Assessment/Plan Assessment/Plan Admit for suspected community-acquired pneumonia Patient with a history of leukemia on chemotherapy Patient with acute hypoxic respiratory failure Pulmonary effusion noted as well IV antibiotics IV hydration Treat patient with IV vanco and IV Zosyn Patient will be admitted to [facility] surge Plan discussed with: Patient Problem List: (1) Pleural effusion, right (2) Acute respiratory failure (3) Hypoxia (4) Community acquired pneumonia Date of Service: Feb 23, 2024 Billing Provider: GONZALES CHAO MD Common Visit Codes: [id number] INP/OBS CARE (HIGH) GONZALES CHAO MD Feb 26, 2024 22:02
== END 2024-02-25 20:33 | disposition home or self-care (01) | DRG 177 ==
LOC: ER 11:53 → OVERFLOW 14:42 → EAST 14:49 → TELE-EAST 02-24 18:12
PROVIDERS: ADMIT Student in an Organized Health Care Education/Training Program; ATTEND Student in an Organized Health Care Education/Training Program
DX: J15.69 Pneumonia due to other Gram-negative bacteria (principal); J96.01 Acute respiratory failure with hypoxia; J90 Pleural effusion, not elsewhere classified; C95.91 Leukemia, unspecified, in remission; J98.11 Atelectasis; J84.9 Interstitial pulmonary disease, unspecified; J15.9 Unspecified bacterial pneumonia; Z79.899 Other long term (current) drug therapy
CPT/HCPCS: 36415; 71046; 80048; 81001; 83605; 83880; 85025; 86803; 87040; 87070; 87081; 87086; 87205; 87340; 87426; 87804; 93005; 94640; 96361; 96365; 96375; 99291; G0378

== ENCOUNTER 2024-03-27 11:07 | Inpatient (IN) | payer MEDICARE, MEDICAID ==
[~2024-03-27] VITALS: Ht 162.6 cm; Wt 76.2 kg
[~2024-03-27 11:07] MED LIST changes: +ALBUAER3 IN; -AZIT-185 PO; -BENZ100C97 PO; -CEFP200T15 PO; +DOX100T PO; -FOLI-119 PO; -LORA10CA PO; -ONDA-155 PO; -PANT1INJ3 PO; -PRE1T PO; +PRED20TA2 PO; -URSO300C2 PO
--- NOTE | 2024-03-27 11:39 | ECG ---
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
--- NOTE | 2024-03-27 11:39 | ED.PDOC ---
SOB-HPI HPI Comments 73 y.o male with PMH of Leukemia, presents to the ED for a chief complaint of SOB associated with a productive cough, yellow phlegm, and chills that started 2 days ago. Patient reports SOB worsened last night, is unable to take full breaths and has some chest wall tenderness due to his productive cough. Patient was seen at the ED 2 months ago for similar symptoms and was diagnosed with pneumonia. Upon ED arrival, patient's SPO2 read 88% on room air, was placed on oxygen. Patient denies any fever, nausea, vomiting, diarrhea, abdominal pain. Time Seen by MD: 11:34 Primary Care Provider: [facility] Reviewed notes: Nurses Notes, Medications, Allergies Information Source: Patient Mode of Arrival: Ambulatory Severity: Moderate Timing: Days (2) Duration: Since onset Context: At Rest PE Risk Factors: None History of: Recent URI, Other (PNA ) Modifying Factors: Nothing Associated Signs and Symptoms: Cough If cough with SOB: Productive, Yellow Past Medical History PAST MEDICAL HISTORY: Cancer Surgical History: Appendectomy, Cholecystectomy, Hernia Repair Family History Family History: No family hx of DM, No family hx of Heart elaine, No family hx of HTN, No family hx ofKidney elaine, No family hx of Liver elaine, No family hx of Lung elaine, No family hx of Stroke, Family hx of Cancer Social History Smoker: Non-Smoker Alcohol: Denies ETOH Use Drugs: Denies Drug Use Lives In: Home Constitutional: reports: chills; denies: diaphoresis, fatigue, fever, malaise, sweats, weakness, others EENTM: denies: blurred vision, double vision, ear bleeding, ear discharge, ear drainage, ear pain, ear ringing, eye pain, eye redness, hearing loss, mouth pain, mouth swelling, nasal discharge, nose bleeding, nose congestion, nose pain, photophobia, tearing, throat pain, throat swelling, voice changes, others Respiratory: reports: cough, SOB at rest, shortness of breath, SOB with excertion; denies: hemoptysis, orthopnea, stridor, wheezing, others Cardiovascular: denies: chest pain, dizzy spells, diaphoresis, Dyspnea on exertion, edema, irregular heart beat, left arm pain, lightheadedness, palpitat ions, PND, syncope, others Gastrointestinal: denies: abdomen distended, abdominal pain, blood streaked bow els, constipated, diarrhea, dysphagia, difficulty swallowing, hematemesis, melena, nausea, poor appetite, poor fluid intake, rectal bleeding, rectal pain, vomiting, others Genitourinary: denies: burning, dysuria, flank pain, frequency, hematuria, incontinence, penile discharge, penile sore, pain, testicle pain, testicle swelling, urgency, others Neurological: denies: dizziness, fainting, headache, left sided numbness, left sided weakness, numbness, paresthesia, pre-existing deficit, right sided numbness, right sided weakness, seizure, speech problems, tingling, tremors, weakness, others Musculoskeletal: denies: back pain, gout, joint pain, joint swelling, muscle pain, muscle stiffness, neck pain, others Integumetry: denies: bruises, change in color, change in hair/nails, dryness, laceration, lesions, lumps, rash, wounds, others Allergic/Immunocompromised: denies: Difficulty Healing, Frequent Infections, Hives, Itching, others Hematologic/Lymphatic: denies: anemia, blood clots, easy bleeding, easy bruising, swollen glands, others Endocrine: denies: excessive hunger, excessive sweating, excessive thirst, excessive urination, flushing, intolerance to cold, intolerance to heat, unexplained weight gain, unexplained weight loss, others Psychiatric: denies: anxiety, bipolar disorder, depression, hopeless, panic disorder, schizophrenia, sleepless, suicidal, others All Other Systems: Reviewed and Negative Physical Exam General Appearance: Moderate Distress HEENT: Normal ENT Inspection, Pharynx Normal, TMs Normal Neck: Full Range of Motion, Non-Tender, Normal, Normal Inspection Respiratory: Chest Non-Tender, Decreased Breath Sounds, No Accessory Muscle Use, Respiratory Distress Cardiovascular: No Edema, No JVD, No Murmur, No Gallop, Tachycardia Breast Exam: Deferred Gastrointestinal: No Organomegaly, Non Tender, No Pulsatile Mass, Normal Bowel Sounds, Soft Genitalia: Deferred Pelvic: Deferred Rectal: Deferred Extremities: No calf tenderness, Normal capillary refill, Normal inspection, Normal range of motion, Non-tender, No pedal edema Musculoskeletal : Apperance: Normal Neurologic: Alert, 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 Was a procedure done?: No Differential Dx Differential Diagnosis: Asthma, Bronchitis, COPD, Pneumonia, Pulmonary Embolism, Respiratory Distress, URI X-Ray, Labs, Meds, VS Vital Signs Date Time Temp Pulse Resp B/P (MAP) Pulse Ox O2 Delivery O2 Flow Rate FiO2 03/27/24 14:26 98.3 129 18 123/72 (89) 95 98.3 03/27/24 11:52 28 91 Nasal Cannula* 3 32 03/27/24 11:52 91 Nasal Cannula* 3 32 03/27/24 11:43 129 03/27/24 11:42 98.2 133 28 145/77 (99) 91 03/27/24 11:38 129 Lab Test 03/27/24 11:55 03/27/24 11:29 Range/Units Influenza Type A Antigen Positive Negative Influenza Type B Antigen Negative Negative SARS-CoV-2 Antigen (Rapid) Negative NEGATIVE White Blood Count 6.2 4.4-10.8 10^3/uL Red Blood Count 5.36 4.5-5.90 10^6/uL Hemoglobin 14.0 13.5-17.5 g/dL Hematocrit 42.2 41.0-53.0 % Mean Corpuscular Volume 78.7 L 80.0-100.0 fL Mean Corpuscular Hemoglobin 26.1 L 28.0-32.0 pg Mean Corpuscular Hemoglobin Concent 33.1 32.0-36.0 g/dL Red Cell Distribution Width 16.0 H 11.8-14.3 % Platelet Count 148 140-450 10^3/uL Mean Platelet Volume 6.5 L 6.9-10.8 fL Neutrophils (%) (Auto) 79.2 37.0-80.0 % Lymphocytes (%) (Auto) 13.4 10.0-50.0 % Monocytes (%) (Auto) 6.7 0.0-12.0 % Eosinophils (%) (Auto) 0.3 0.0-7.0 % Basophils (%) (Auto) 0.4 0.0-2.0 % Neutrophils # (Auto) 4.9 1.6-8.6 10 ^3/uL Lymphocytes # (Auto) 0.8 0.4-5.4 10 ^3/uL Monocytes # (Auto) 0.4 0-1.3 10 ^3/uL Eosinophils # (Auto) 0 0-0.8 10 ^3/uL Basophils # (Auto) 0 0-0.2 10 ^3/uL Nucleated Red Blood Cells 0.0 % Troponin I High Sensitivity 6 </=54 ng/L B-Type Natriuretic Peptide 29.43 0-100 pg/mL Chest x-ray IMPRESSION: 1. No significant change from previous exam. Evidence of bronchitis and bronchiolitis bilaterally. The patient is influenza a is positive The BNP is within normal limits The troponin level is negative The influenza B and the COVID test are negative The chemistry panel is within normal limits At this time, the patient is being admitted to the hospitalist Images Reviewed?: Images reviewed and evaluated by me Time of 1ST Reevaluation: 11:36 Reevaluation 1ST: Unchanged Patient Education/Counseling: Diagnosis, Treatment, Prognosis Family Education/Counseling: No Family Present Departure 1 Departure Time of Disposition: 15:05 Impression: Primary Impression: Acute respiratory failure Qualified Codes: J96.01 - Acute respiratory failure with hypoxia Disposition: ADMITTED INPATIENT Admit to: Tele Condition: Fair Critical Care Note Critical Care Time?: Yes (35 min-critical care time only) Stability Stability form required: Yes Unstable for transfer: Telemetry monitoring (Telemetry monitoring required), ED Physician Assesment (Clinical assesment) I personally scribed for CARMENZA EAST MD ([email or web address] EDUARDO) on 03/27/24 at 11:39. Electronically submitted by Maddie Mazariegos ([facility]). I personally scribed for CARMENZA EAST MD ([email or web address]) on 03/27/24 at 11:43. Electronically submitted by Maddie Mazariegos ([facility]3]Kii). I personally scribed for CARMENZA EAST MD ([email or web address]) on 03/27/24 at 12:12. Electronically submitted by Maddie Mazariegos ([facility]). CARMENZA EAST MD Mar 27, 2024 11:39
[2024-03-27 11:47] LABS: Basophils # (auto) 0 10 ^3/uL (0-0.2); Eosinophils # (auto) 0 10 ^3/uL (0-0.8)
[2024-03-27 11:49] LABS: Basophils % (auto) 0.4 % (0.0-2.0); Eosinophils % (auto) 0.3 % (0.0-7.0); Hematocrit 42.2 % (41.0-53.0); Lymphocytes # (auto) 0.8 10 ^3/uL (0.4-5.4); Lymphocytes % (auto) 13.4 % (10.0-50.0); Mean Corpuscular Hemoglobin 26.1 pg (28.0-32.0); Mean Corpuscular Hgb Conc. 33.1 g/dL (32.0-36.0); Mean Corpuscular Volume 78.7 fL (80.0-100.0); Monocytes # (auto) 0.4 10 ^3/uL (0-1.3); Monocytes % (auto) 6.7 % (0.0-12.0); Neutrophils # (auto) 4.9 10 ^3/uL (1.6-8.6); Neutrophils % (auto) 79.2 % (37.0-80.0); Platelet Count (auto) 148 10^3/uL (140-450); Red Blood Cells 5.36 10^6/uL (4.5-5.90); White Blood Cell 6.2 10^3/uL (4.4-10.8)
--- NOTE | 2024-03-27 12:06 | DVH ---
Chest x-ray Technique: PA and lateral views Comparison: 02/23/2024 CLINICAL INDICATION: Shortness of breath FINDINGS: Heart size slightly enlarged. Elevation of the right hemidiaphragm. There is bronchial an d bronchiolar wall thickening . Elevated right hemidiaphragm IMPRESSION: 1. No significant change from previous exam. Evidence of bronchitis and bronchiolitis bilaterally.
[2024-03-27 13:07] LABS: COVID19 ANTIGEN SOFIA FIA NEGATIVE (NEGATIVE); Rapid Influenza A Positive (Negative); Rapid Influenza B Negative (Negative)
[2024-03-27] MEDS ORDERED: ALBUTEROL SULF 2.5 MG/0.5ML(0.5%) NEB SOLN NEB PRN (15:15)
[2024-03-27] MEDS ORDERED: NITROGLYCERIN 0.4 MG SL TAB SL PRN (15:15)
[2024-03-27] MEDS ORDERED: MORPHINE SULFATE INJ 2 MG/ml SYRG IV PRN (15:15)
[2024-03-27] MEDS ORDERED: ACETAMINOPHEN 325 MG TAB PO PRN (15:15)
[2024-03-27] MEDS ORDERED: IPRATROPIUM BROM 0.5 MG/2.5ML INH SOL NEB PRN (15:15)
[2024-03-27] MEDS ORDERED: HYDROcodone-ACET 5/325MG TAB PO PRN (15:15)
[2024-03-27] MEDS ORDERED: ONDANSETRON HCL 4 MG/2 ML VIAL IV PRN (15:15)
[2024-03-27] MEDS ORDERED: DOCUSATE SOD 100 MG CAP PO PRN (15:15)
--- NOTE | 2024-03-27 15:56 | DVHHP2 ---
History of Present Illness Reason for Visit: Acute respiratory distress History of Present Illness The patient is a 73-year-old male with past medical history of cancer who presented to [facility] ED with complaint of shortness of breaths. Patient reports symptoms progressively get worse with productive cough, yellow phlegm, chills, increased work of breathing, getting worse that prompted this visit. Patient was seen and evaluated in the ED, laboratory data shows WBC 6.2, platelets 148, BNP 29.43, troponin 6. Chest x-ray revealing evidence of bronchitis and bronchiolitis bilaterally. Serology reports positive for influenza type A Ag. Please see medication orders section in the computer. On my assessment, patient denied chest pain, no headache, no dizziness, no diaphoresis, currently on oxygen, no abdominal pain, no diarrhea, no nausea, no vomiting, no fever, no chills. Patient was admitted for further evaluation and medical management. Past Medical History Cancer Past Surgical History Appendectomy, Cholecystectomy, Hernia Repair Family History Reviewed, noncontributory to the management of this case. Past Social History The patient lives at home, denies smoking, alcohol or illicit drugs abuse. Review of Systems Constitutional: Yes: Chills; No: Fever, Sweats, Weakness, Malaise, Other Eyes: No: Pain, Vision change, Conjunctivae inflammation, Eyelid inflammation, Other, Redness ENT: No: Ear pain, Ear discharge, Nose pain, Nose discharge, Nose congestion, Mouth pain, Mouth swelling, Throat pain, Throat swelling, Other Respiratory: Cough, Shortness of breath, SOB with excertion, Other (SOB at rest); No: Dry, Wheezing, Hemoptysis, Pleuritic Pain, Sputum, Wheezing Cardiovascular: No: Chest Pain, Palpitations, Orthopnea, Paroxysmal Noc. Dyspnea, Edema, Lt Headedness, Other Gastrointestinal: No: Nausea, Vomiting, Abdominal Pain, Diarrhea, Constipation, Melena, Hematochezia, Other Genitourinary: No Dysuria, No Frequency, No Incontinence, No Hematuria, No Retention, No Other Musculoskeletal: No: other, neck pain, shoulder pain, arm pain, back pain, hand pain, leg pain, foot pain Skin: No: Rash, Lesions, Jaundice, Bruising, Other Neurological: No: Weakness, Numbness, Incoordination, Change in speech, Confusion, Seizures, Other Allergies: Coded Allergies: NO KNOWN ALLERGIES (Unverified , 04/08/13) Exam Vital Signs Vital Signs Date Time Temp Pulse Resp B/P (MAP) Pulse Ox O2 Delivery O2 Flow Rate FiO2 03/27/24 14:26 98.3 129 18 123/72 (89) 95 98.3 03/27/24 11:52 Nasal Cannula* 3 32 General Appearance: Alert, Oriented X3, Cooperative, No acute distress HEENT: Atraumatic, PERRLA, EOMI, Mucous membr. moist/pink Respiratory: Normal air movement, Other (Diminished breath sounds) Cardiovascular: Regular rate, Normal S1, Normal S2, No murmurs Abdominal: Normal bowel sounds, Soft, No tenderness, No hepatospenomegaly, No masses Extremities: No clubbing, No cyanosis, No edema, Normal pulses, No tenderness/swelling Skin: No rashes, No breakdown, No significant lesion Neuro: Normal speech, Normal tone, Sensation intact, Cranial nerves 3-12 NL, Reflexes 2+, Other (Generalized weakness) Psych/Mental Status: Mental status NL, Mood NL Labs/Xrays Labs Test 03/27/24 15:00 03/27/24 11:55 03/27/24 11:29 Range/Units Influenza Type A Antigen Positive Negative Influenza Type B Antigen Negative Negative SARS-CoV-2 Antigen (Rapid) Negative NEGATIVE White Blood Count 6.2 4.4-10.8 10^3/uL Red Blood Count 5.36 4.5-5.90 10^6/uL Hemoglobin 14.0 13.5-17.5 g/dL Hematocrit 42.2 41.0-53.0 % Mean Corpuscular Volume 78.7 L 80.0-100.0 fL Mean Corpuscular Hemoglobin 26.1 L 28.0-32.0 pg Mean Corpuscular Hemoglobin Concent 33.1 32.0-36.0 g/dL Red Cell Distribution Width 16.0 H 11.8-14.3 % Platelet Count 148 140-450 10^3/uL Mean Platelet Volume 6.5 L 6.9-10.8 fL Neutrophils (%) (Auto) 79.2 37.0-80.0 % Lymphocytes (%) (Auto) 13.4 10.0-50.0 % Monocytes (%) (Auto) 6.7 0.0-12.0 % Eosinophils (%) (Auto) 0.3 0.0-7.0 % Basophils (%) (Auto) 0.4 0.0-2.0 % Neutrophils # (Auto) 4.9 1.6-8.6 10 ^3/uL Lymphocytes # (Auto) 0.8 0.4-5.4 10 ^3/uL Monocytes # (Auto) 0.4 0-1.3 10 ^3/uL Eosinophils # (Auto) 0 0-0.8 10 ^3/uL Basophils # (Auto) 0 0-0.2 10 ^3/uL Nucleated Red Blood Cells 0.0 % B-Type Natriuretic Peptide 29.43 0-100 pg/mL NT: SALLIE GROVES ACCT: [id number] UNIT: [id number] : 1950 LOC: ER ROOM / BED: / AGE / SEX: 73 / M ADM STATUS: REG ER SERVICE [id number] ORDERING PHYSICIAN: CARMENZA EAST MD PROCEDURE(s): CXR2 - CHEST TWO VIEWS ROUTINE REASON: sob ORDER NUMBER(s): [id number], ACCESSION NUMBER(s): [id number] Chest x-ray Technique: PA and lateral views Comparison: 02/23/2024 CLINICAL INDICATION: Shortness of breath FINDINGS: Heart size slightly enlarged. Elevation of the right hemidiaphragm. There is bronchial and bronchiolar wall thickening. Elevated right hemidiaphragm IMPRESSION: 1. No significant change from previous exam. Evidence of bronchitis and bronchiolitis bilaterally. Assessment/Plan Assessment/Plan Acute respiratory distress Generalized weakness Bronchitis Influenza due to influenza virus, type A, human Plan 1. Admit to telemetry unit 2. Breathing treatment 3. Pain control management 4. IV antibiotic management 5. Management of fluids and electrolytes 6. Consultation for hospitalist 7. Diagnostic test chest x-ray 8. DVT prophylaxis-on SCDs 9. Repeat labs CBC, CMP in a.m. 10. Home medication reviewed and reconciled 11. Continue with current medical management 12. Treatment plan discussed with patient and RN. Patient verbalized understanding. Plan discussed with: Patient, Other (RN) Problem List: (1) Acute respiratory distress (2) Generalized weakness (3) Bronchitis (4) Influenza due to influenza virus, type A, human Date of Service: Mar 27, 2024 Billing Provider: CASSANDRA ABEL DNP Visit Codes: [id number] INP/OBS CARE (HIGH) CASSANDRA ABEL DNP Mar 27, 2024 15:56
[2024-03-27] MEDS: levoFLOXacin 500MG 100 ML IV ONE (16:35)
[2024-03-27] MEDS: methylPREDNISolone SOD SUCC 125 MG/2 ML VL IV ONE (16:36)
[2024-03-27 23:09] VITALS: O2SAT 95
[2024-03-28] VITALS (10 sets, daily range): BP systolic 98–113; BP diastolic 58–72; PULSE 72–86; RESP 16–18; TEMP 97.7–99.3; O2SAT 91–97
[2024-03-28] MEDS: OSELTAMIVIR 75 MG CAP PO SCH (01:23)
[2024-03-28] MEDS: FAMOTIDINE (10MG/ML) 2ML VL IV SCH (01:27)
[2024-03-28] MEDS: methylPREDNISolone SOD SUCC 40 MG/ML VL IV SCH ×2 (01:28→21:07)
[2024-03-28] MEDS: SODIUM CHLORIDE 0.9% 1,000 ML IV SCH (01:54)
[2024-03-28 07:09] LABS: Basophils # (auto) 0 10 ^3/uL (0-0.2); Basophils % (auto) 0.1 % (0.0-2.0); Eosinophils # (auto) 0 10 ^3/uL (0-0.8); Hematocrit 42.4 % (41.0-53.0); Hemoglobin 14.2 g/dL (13.5-17.5); Lymphocytes # (auto) 0.9 10 ^3/uL (0.4-5.4); Lymphocytes % (auto) 20.4 % (10.0-50.0); Mean Corpuscular Hemoglobin 26.3 pg (28.0-32.0); Mean Corpuscular Hgb Conc. 33.4 g/dL (32.0-36.0); Mean Corpuscular Volume 78.6 fL (80.0-100.0); Monocytes # (auto) 0.1 10 ^3/uL (0-1.3); Monocytes % (auto) 2.3 % (0.0-12.0); Neutrophils # (auto) 3.6 10 ^3/uL (1.6-8.6); Neutrophils % (auto) 77.2 % (37.0-80.0); Nucleated Red Blood Cells % 0.1 %; Platelet Count (auto) 132 10^3/uL (140-450); Red Cell Distribution Width 16.1 % (11.8-14.3); White Blood Cell 4.6 10^3/uL (4.4-10.8)
[2024-03-28 07:16] LABS: Alkaline Phosphatase 82 U/L (46-116); Anion Gap 9 (5-15); BUN/Creatinine Ratio 13.7 (10.0-20.0); Blood Urea Nitrogen 14 mg/dL (9-23); Calcium 10.2 mg/dL (8.7-10.4); Carbon Dioxide 26 mmol/L (20-31); Chloride 105 mmol/L (98-107); Potassium 4.2 mmol/L (3.5-5.1); Sodium 140 mmol/L (136-145)
[2024-03-28 07:18] LABS: Aspartate Aminotransferase 19 U/L (13-40); Bilirubin, Total 0.6 mg/dL (0.2-1.0); Total Protein 7.4 g/dL (5.7-8.2)
[2024-03-28 07:20] LABS: Alanine Aminotransferase < 9 U/L (7-40); Albumin 4.9 g/dL (3.2-4.8); Glucose 154 mg/dL (74-106)
--- NOTE | 2024-03-28 13:11 | DVHPN2 ---
Progress Note Date Seen: Mar 28, 2024 Medical Necessity Reason Pt with a Central, PICC or Fol: No Subjective Patient reports: No new complaints Review of Systems: HEENT:Normal, CVS:Normal, RESPIRATORY:Normal, GI:Normal, :Normal, MSK:Normal, NEURO:Normal Objective vital signs Vital Sign Date Time Temp Pulse Resp B/P (MAP) Pulse Ox O2 Delivery O2 Flow Rate FiO2 03/28/24 06:38 98.5 90 18 132/75 (94) 94 98.5 03/28/24 06:36 Room Air* 0 21 medications Current Medications Medications Dose Ordered Sig/Maria Guadalupe Route Start Time Stop Time Status Last Admin Dose Admin Oseltamivir Phosphate 75 mg Q12HR PO 03/27/24 22:00 04/01/24 21:59 03/28/24 01:23 75 MG Albuterol 2.5 mg Q4HPRN PRN NEB 03/27/24 15:15 Ipratropium [place] 0.5 mg Q4HPRN PRN NEB 03/27/24 15:15 Sodium Chloride 1,000 ml @ 60 mls/hr [id number] IV 03/27/24 15:15 Acetaminophen/ Hydrocodone Bitart 1 tab Q4HP PRN PO 03/27/24 15:15 Ondansetron HCl 4 mg Q4HP PRN IV 03/27/24 15:15 Docusate Sodium 100 mg BIDPRN PRN PO 03/27/24 15:15 Acetaminophen 650 mg Q6HP PRN PO 03/27/24 15:15 Nitroglycerin 0.4 mg Q5MINP PRN SL 03/27/24 15:15 Morphine Sulfate 2 mg Q30M PRN IV 03/27/24 15:15 Methylprednisolone Sodium Succinate 40 mg Q8HR IV 03/27/24 22:00 03/28/24 06:00 40 MG Famotidine 20 mg Q12HR IV 03/27/24 22:00 03/28/24 01:27 20 MG Examination: GENERAL:Normal, HEENT:Normal, NECK:Normal, LUNGS:Normal, CVS:Normal, ABDOMEN:Normal, MSK:Normal, SKIN:Normal, NEURO:Normal, :Normal laboratory and microbiology Laboratory Tests 03/28/24 06:15 Test 03/28/24 06:15 Range/Units Serum Glucose 154 H 74-106 mg/dL Problem List/Assessment/Plan Problem List/Assessment/Plan #1 influenza pneumonia: cont meds #2 interstitial lung disease #3 myelofibrosis s/p stem cell txp advance care planning- full code- time spent 19 mins Plan discussed with: Patient, Daughter Date of Service: Mar 28, 2024 Billing Provider: JUAN ALBERTO PAULA MD Common Visit Codes: [id number] INP/OBS CARE(HIGH) Secondary Visit Codes: [id number] CARE PLAN 30 MINUTES JUAN ALBERTO PAULA MD Mar 28, 2024 13:11
[2024-03-28 16:30] LABS: Urine Bacteria None Seen /hpf (None Seen)
[2024-03-28 16:47] LABS: Urine Blood 1+ /uL (Negative); Urine Clarity Clear (Clear); Urine Color Yellow (Yellow); Urine Mucus FEW (None Seen); Urine Protein, UAD 1+ (Negative); Urine Specific Gravity 1.029 (1.001-1.035); Urine Squamous Epithelial Cell None Seen /hpf (<5); Urine Urobilinogen Normal (Negative); Urine WBC 3 /hpf (0 - 3); Urine pH 5.5 (5.0-9.0)
[2024-03-29 01:00] VITALS: BP 101/49; PULSE 69; RESP 17; TEMP 98.7; O2SAT 96
[2024-03-29 05:00] VITALS: BP 98/60; PULSE 67; RESP 17; TEMP 98.7; O2SAT 94
[2024-03-29 06:07] LABS: Basophils # (auto) 0 10 ^3/uL (0-0.2); Basophils % (auto) 0.1 % (0.0-2.0); Eosinophils # (auto) 0 10 ^3/uL (0-0.8); Hemoglobin 12.1 g/dL (13.5-17.5); Lymphocytes # (auto) 0.8 10 ^3/uL (0.4-5.4); Monocytes # (auto) 0.3 10 ^3/uL (0-1.3); Nucleated Red Blood Cells % 0.2 %
[2024-03-29 06:10] LABS: Hematocrit 36.7 % (41.0-53.0); Lymphocytes % (auto) 15.3 % (10.0-50.0); Mean Corpuscular Hgb Conc. 33.1 g/dL (32.0-36.0); Mean Corpuscular Volume 78.6 fL (80.0-100.0); Monocytes % (auto) 6.2 % (0.0-12.0); Neutrophils % (auto) 78.4 % (37.0-80.0); Platelet Count (auto) 118 10^3/uL (140-450); Red Blood Cells 4.66 10^6/uL (4.5-5.90); White Blood Cell 5.1 10^3/uL (4.4-10.8)
[2024-03-29 06:18] LABS: Calcium 8.8 mg/dL (8.7-10.4); Potassium 3.9 mmol/L (3.5-5.1); Sodium 142 mmol/L (136-145)
[2024-03-29 06:19] LABS: Anion Gap 7 (5-15); Carbon Dioxide 27 mmol/L (20-31)
[2024-03-29 06:20] LABS: Chloride 108 mmol/L (98-107)
[2024-03-29 06:24] LABS: BUN/Creatinine Ratio 16.2 (10.0-20.0); Blood Urea Nitrogen 17 mg/dL (9-23)
[2024-03-29 06:29] LABS: Glucose 136 mg/dL (74-106)
[2024-03-29 08:00] VITALS: PULSE 60
[2024-03-29 08:34] VITALS: O2SAT 93
--- NOTE | 2024-03-29 08:38 | DVH ---
CHEST RADIOGRAPH Indication: pneumonia Technique: PA and lateral views Comparison: XY CHEST PORTABLE on DOS: 08/18/23, XY CHEST PORTABLE on DOS: 04/16/23, XY CHEST PORTABLE o n DOS: 04/02/23, XY CHEST TWO VIEWS ROUTINE on DOS: 03/27/24 FINDINGS: Heart size slightly enlarged. Elevation of the right hemidiaphragm. There is bronchial and bronchio lar wall thickening . Elevated right hemidiaphragm IMPRESSION: 1. No significant change from previous exam. Evidence of bronchitis and bronchiolitis bilaterally.
[2024-03-29 08:50] VITALS: BP 92/61; PULSE 64; RESP 17; TEMP 98; O2SAT 93
[2024-03-29 12:44] VITALS: BP 98/64; PULSE 62; RESP 17; TEMP 98.1; O2SAT 95
[2024-03-29] MEDS ORDERED: AZIT-185 PO (13:47)
[2024-03-29] MEDS ORDERED: OSEL75CA5 PO (13:47)
[2024-03-29] MEDS ORDERED: PRED20TA2 PO (13:47)
--- NOTE | 2024-03-29 13:48 | DVHDS2 ---
Discharge Summary Date of Admission Mar 27, 2024 at 15:12 Date of Discharge: Mar 29, 2024 Labs/Diagnostic Data: Laboratory Results Test 03/29/24 05:22 03/28/24 16:29 03/28/24 06:15 03/27/24 21:45 White Blood Count 5.1 10^3/uL (4.4-10.8) Red Blood Count 4.66 10^6/uL (4.5-5.90) Hemoglobin 12.1 g/dL (13.5-17.5) Hematocrit 36.7 % (41.0-53.0) Mean Corpuscular Volume 78.6 fL (80.0-100.0) Mean Corpuscular Hemoglobin 26.0 pg (28.0-32.0) Mean Corpuscular Hemoglobin Concent 33.1 g/dL (32.0-36.0) Red Cell Distribution Width 16.0 % (11.8-14.3) Platelet Count 118 10^3/uL (140-450) Mean Platelet Volume 6.8 fL (6.9-10.8) Neutrophils (%) (Auto) 78.4 % (37.0-80.0) Lymphocytes (%) (Auto) 15.3 % (10.0-50.0) Monocytes (%) (Auto) 6.2 % (0.0-12.0) Eosinophils (%) (Auto) 0.0 % (0.0-7.0) Basophils (%) (Auto) 0.1 % (0.0-2.0) Neutrophils # (Auto) 4.0 10 ^3/uL (1.6-8.6) Lymphocytes # (Auto) 0.8 10 ^3/uL (0.4-5.4) Monocytes # (Auto) 0.3 10 ^3/uL (0-1.3) Eosinophils # (Auto) 0 10 ^3/uL (0-0.8) Basophils # (Auto) 0 10 ^3/uL (0-0.2) Nucleated Red Blood Cells 0.2 % Sodium Level 142 mmol/L (136-145) Potassium Level 3.9 mmol/L (3.5-5.1) Chloride Level 108 mmol/L (98-107) Carbon Dioxide Level 27 mmol/L (20-31) Anion Gap 7 (5-15) Blood Urea Nitrogen 17 mg/dL (9-23) Creatinine 1.05 mg/dL (0.700-1.30) Glomerular Filtration Rate Calc 74 mL/min (>90) BUN/Creatinine Ratio 16.2 (10.0-20.0) Serum Glucose 136 mg/dL (74-106) Calcium Level 8.8 mg/dL (8.7-10.4) Urine Color Yellow (Yellow) Urine Clarity Clear (Clear) Urine pH 5.5 (5.0-9.0) Urine Specific [place] 1.029 (1.001-1.035) Urine Protein 1+ (Negative) Urine Ketones Negative (Negative) Urine Blood 1+ /uL (Negative) Urine Nitrite Negative (Negative) Urine Bilirubin Negative (Negative) Urine Urobilinogen Normal mg/dL (Negative) Urine Leukocyte Esterase Trace /uL (Negative) Urine RBC 3 /hpf (0 - 3) Urine WBC 3 /hpf (0 - 3) Urine Squamous Epithelial Cells None seen /hpf (<5) Urine Bacteria None seen /hpf (None Seen) Urine Mucus Few (None Seen) Urine Glucose Normal mg/dL (Normal) Total Bilirubin 0.6 mg/dL (0.2-1.0) Aspartate Amino Transferase (AST) 19 U/L (13-40) Alanine Aminotransferase (ALT) < 9 U/L (7-40) Alkaline Phosphatase 82 U/L (46-116) Total Protein 7.4 g/dL (5.7-8.2) Albumin 4.9 g/dL (3.2-4.8) Troponin I High Sensitivity 13 ng/L (</=54) Test 03/27/24 15:00 03/27/24 11:55 03/27/24 11:29 Lactic Acid Level 2.0 mmol/L (0.4-2.0) Influenza Type A Antigen Positive (Negative) Influenza Type B Antigen Negative (Negative) SARS-CoV-2 Antigen (Rapid) Negative (NEGATIVE) B-Type Natriuretic Peptide 29.43 pg/mL (0-100) Other Laboratory Tests 03/29/24 05:22 Brief Hx & Hospital Course: SEE DICTATED NOTE Condition at Discharge: Fair Final Diagnosis/Problems List INFLUENZA Discharge Disposition: Home Discharge Instruct/Medications Diet: Cardiac 2g Na,low cholest Activity: No Restrictions, As Tolerated Follow Up/Referral: FU WITH PCP IN 1 WK Medications: RESUME HOME MEDS SCRIPT TO PHARMACY Discharge Statement: "Patient was advised to return to the ER or call 911 if any headaches, dizziness, shortness of breath, chest pain, abdominal pain, bleeding, fevers, or worsening of medical condition. Patient was counseled about treatment plan, medications, possible side effects, patientverbalized understanding. All questions were answered to the best of my ability. This discharge took greater then 30 minutes in planning, reviewing documentation, counseling the patient, and discussing with other team members." ASSESSMENT ASSESSMENT Assessment INFLUENZA Date of Service: Mar 29, 2024 Billing Provider: JUAN ALBERTO PAULA MD Common Visit Codes: 00276-UDH/OBS DISCH DAY >30min JUAN ALBERTO PAULA MD Mar 29, 2024 13:48
[2024-03-29] MEDS ORDERED: AZIT-74 PO (13:54)
--- NOTE | 2024-03-29 14:08 | DVHDS ---
DATE OF DISCHARGE: 03/29/2024 HISTORY OF PRESENT ILLNESS: The patient is a 73-year-old gentleman who was admitted with history of increasing shortness of breath and cough and chills. The patient has previous history of myelofibrosis with stem cell transplant. HOSPITAL COURSE: The patient had a chest x-ray that showed evidence of bronchitis and bronchiolitis. The patient was positive for influenza A. The patient currently is doing well and will be discharged home to be on prednisone 20 mg daily for 5 days, Tamiflu 75 mg p.o. b.i.d. for 5 days and azithromycin 250 mg daily for 5 days. He will follow up with his primary in 1 week. FINAL DIAGNOSES: Therefore, * Influenza A pneumonia. * Bronchitis/bronchiolitis with questionable pneumonia. * History of interstitial lung disease. * Myelofibrosis with previous stem cell transplant. Time spent in discharge planning and review of plan with the patient and nursing was 36 minutes. MD SARWAT Ruiz/NORIS TID: [id number] RECEIPT: [id number]
== END 2024-03-29 16:03 | disposition home or self-care (01) | DRG 193 ==
LOC: ER 11:07 → TELE 15:12 → TELE-EAST 03-28 14:05
PROVIDERS: ADMIT Internal Medicine; ATTEND Internal Medicine
DX: J10.08 Influenza due to other identified influenza virus with other specified pneumonia (principal); J96.01 Acute respiratory failure with hypoxia; J21.9 Acute bronchiolitis, unspecified; D75.81 Myelofibrosis; Z94.84 Stem cells transplant status; J40 Bronchitis, not specified as acute or chronic; Z90.49 Acquired absence of other specified parts of digestive tract
CPT/HCPCS: 36415; 71045; 71046; 80048; 80053; 81001; 83605; 83880; 84484; 85025; 87040; 87426; 87804; 93005; 96374; 99291; G0378; J3490